=== PATIENT | female | born 1950 | race Caucasian/White ===

== ENCOUNTER 2018-03-17 01:41 | Emergency (ER) | payer MEDICARE, OTHER, MEDICAID ==
[2018-03-17] MEDS ORDERED: ONDANSETRON (ODT) 4 MG TAB ODT (05:54)
== END 2018-03-17 08:09 | disposition home or self-care (01) ==
LOC: E/R 01:41
DX: F10.120 Alcohol abuse with intoxication, uncomplicated (principal); R40.2252 Coma scale, best verbal response, oriented, at arrival to emergency department; R40.2142 Coma scale, eyes open, spontaneous, at arrival to emergency department; R40.2362 Coma scale, best motor response, obeys commands, at arrival to emergency department; X58.XXXA Exposure to other specified factors, initial encounter; Y92.007 Garden or yard of unspecified non-institutional (private) residence as the place of occurrence of the external cause
CPT/HCPCS: 99283